=== PATIENT | male | born 1975 | race Caucasian/White ===

== ENCOUNTER 2020-01-21 14:48 | Emergency (ER) | payer OTHER, SELFPAY ==
[2020-01-21 14:50] VITALS: BP 143/87; PULSE 82; RESP 18; TEMP 36.6; O2SAT 97; BMI 33.3
--- NOTE | 2020-01-21 15:01 | CT_ITS ---
STUDY: CT ABDOMEN AND PELVIS WITHOUT CONTRAST REASON FOR EXAM: Male, 44 years old. LEFT SIDED ABD PAIN RADIATING TO RIGHT SIDE/BACK X 1 WK. RADIATION DOSAGE (If Supplied By Facility): CTDIvol = ( 16.49 ) mGy, DLP = ( 856.88 ) mGycm TECHNIQUE: Transaxial images were obtained from the dome of the diaphragm to the symphysis pubis without oral contrast, and without intravenous contrast. Sagittal and coronal images were reconstructed. Individualized dose optimization techniques were used for this CT. COMPARISON: None. FINDINGS: Minimal increased markings in the medial segment of the right middle lobe suggestive of atelectasis and/or scarring. The visualized portions of the heart are within normal limits. Normal liver. Normal gallbladder and extrahepatic biliary system. Normal spleen. Normal pancreas. Normal bilateral adrenal glands. There is a 5.4 mm nonobstructive calculus in the midportion of the right kidney. Normal left kidney. Normal visualized stomach. Normal small intestine. Normal colon. The appendix is visualized and appears normal. There is scattered atherosclerotic calcification of the abdominal aorta, without a demonstrated aneurysm. Normal inferior vena cava. Normal retroperitoneum. Normal urinary bladder. There is a small umbilical hernia containing fat. There are mild degenerative changes of the visualized lumbar spine. CT/Abdomen/Pelvis without Cont IMPRESSION: 5.4 mm nonobstructive calculus in the midpole of the right kidney. Electronically Signed: Santos Roldan, at 15:40 EDT , Service support ,
[2020-01-21] MEDS: Ketorolac 30 MG/ML Syringe IV (15:08)
[2020-01-21] MEDS: Ondansetron 4 MG/2 ML Vial IV (15:08)
[2020-01-21 15:18] LABS: Absolute Lymphocyte Count 1.87 X10^3/uL (0.83-4.51); Absolute Neutrophil Count 5.7 X10^3/uL (2.0-7.7); Basophil# 0.06 X10^3/uL; Basophil% 0.7 % (0-1); Eosinophil# 0.21 X10^3/uL; Eosinophils% 2.4 % (0-5); Hematocrit 48.3 % (40-54); Hemoglobin 16.7 g/dL (13.0-16.5); Lymphocyte # 1.87 X10^3/ul (4.0); Lymphocyte % 21.6 % (19-41); Mean Corp Hgb Conc 34.6 g/dL (32-36); Mean Corpuscular Hgb 32.4 pg (27.0-32.0); Mean Corpuscular Volume 93.8 fL (80-94); Mean Platelet Vol. 9.7 fl (6.2-12.0); Monocyte# 0.76 X10^3/uL; Monocyte% 8.8 % (0-10); NRBC Flagged by Analyzer 0 % (0-5); Neutrophil # 5.73 X10^3/uL (2.7-7.7); Neutrophil % 66.3 % (47-70); Platelet Count 264 K/mm3 (150-450); RBC Distribution Width CV 12.3 % (11.6-14.6); RBC Distribution Width SD 42.1 fl (35.1-43.9); Red Blood Count 5.15 M/mm3 (4.6-6.2); White Blood Count 8.7 K/mm3 (4.4-11.0)
[2020-01-21 15:51] LABS: ALB/GLOB Ratio 1.2 RATIO (0.9-2.4); AST(SGOT) 45 U/L (15-37); Alanine Aminotransfer ALT/SGPT 63 U/L (16-61); Albumin, Serum 4.2 g/dL (3.2-5.0); Alkaline Phosphatase 58 U/L (45-117); Anion Gap 5 (5-15); BUN 11 mg/dL (7-18); BUN/Creat Ratio 12.6 RATIO (10-20); Calcium,Total 9.2 mg/dL (8.5-10.1); Chloride 109 mmol/L (98-107); Creatinine, Serum 0.87 mg/dL (0.70-1.30); EST Glomerular Filtration Rate 101 mL/min (>60); Est Glom Filt Rate - Afr Amer 122 mL/min (>60); Estimated Creatinine Clearance 104.83 ml/min; Globulin 3.6 g/dL (2.2-4.2); Glucose 85 mg/dL (74-106); Potassium 4.3 mmol/L (3.5-5.1); Protein, Total 7.8 g/dL (6.4-8.2); Sodium Level 139 mmol/L (136-145)
[2020-01-21 16:05] LABS: Red Blood Cells-Urine 0 SEEN /hpf (0-5); Squamous Epithelial Cells - UA 0 SEEN /hpf (0-5)
--- NOTE | 2020-01-21 16:09 | ED.VISSUMM ---
- ER Visit Summary Date of Service: 01/21/20 Chief Complaint: Abdominal pain History of Present Illness: The patient is a 44 M who presents with abdominal pain. He has had pain for about 1 week. On the left side of his abdomen he describes a burning sensation that goes through into his back. He then states he has this pain on the right side and in the suprapubic area of his abdomen. Nothing makes his symptoms better or worse. He has nausea without vomiting. His nausea has resolved. He has no diarrhea or constipation. He denies any urinary symptoms. He had an umbilical hernia repair about 8 years ago. He denies any fevers. Physical Examination: Vital signs reviewed. HEENT exam unremarkable. Heart is regular rate and rhythm without murmurs. Lungs are clear to auscultation. Abdomen is soft and nontender, but he states the left side of his abdomen feels different. Extremities reveal no edema. Skin exam normal. Neurologic exam normal. Test Results: Hemoglobin 16.7, chloride 109. AST 45, ALT 63. Urinalysis shows no signs of infection. CAT scan of the abdomen and pelvis reveals a right renal calculus but otherwise unremarkable Emergency Department Course and Treatment: Patient is given Toradol and Zofran. He feels improved. I see no acute causes for this patient's pain. I will give him Bentyl to take for pain at home. He is instructed to return to the emergency department if his pain increases. Treatment Plan: [] Disposition: Discharge Impression: Abdominal pain This note was generated with [employer] dictation software. It may contain incorrect words, spelling, and punctuation that were not noted in review of the chart prior to signing ED Disposition - Plan for ED Patient: Disposition: Home or Assisted Living Instructions: ED Unknown Causes of Abdominal Pain Male Prescriptions: Dicyclomine HCl [Bentyl] 20 mg PO TIDAC #20 cap Prescription Printed Referrals: Yisel Hair NP, [employer] MACHINE OPERATOR-C [Primary Care Provider] - Abbe Livingston MD [STAFF PHYSICIAN] -
[2020-01-21 16:34] LABS: Color, Urine Yellow (Yellow); Glucose, Dipstick Normal (Normal); Ketone-Dipstick 5 mg/dl (Negative); Leukocyte Esterase-Dipstick 25 /ul (Negative); Nitrite-Dipstick Negative (Negative); Occult Blood-Urine Negative /ul (Negative); Protein-Dipstick Negative (Negative); Urine Bilirubin Dipstick Negative (Negative); Urine Clarity Clear (Clear); Urine Urobilinogen 1 mg/dl (Normal)
[2020-01-21 17:04] VITALS: RESP 18
[2020-01-21 17:04] LABS: Bacteria RARE /hpf (None Seen); Mucous, Urine 1+ /hpf (<or=2+); White Blood Cells 0-5 SEEN /hpf (0-5)
== END 2020-01-21 17:04 | disposition home or self-care (01) ==
PROVIDERS: Emergency Provider Emergency Medicine; PCP Registered Nurse
DX: R10.9 Unspecified abdominal pain (principal); R11.0 Nausea; N20.0 Calculus of kidney
CPT/HCPCS: 74176; 80053; 81001; 85025; 96374; 96375; 99283; A4216; J2405

== ENCOUNTER 2020-02-05 00:22 | Emergency (ER) | payer OTHER, SELFPAY ==
[2020-02-05 00:23] VITALS: BP 161/95; PULSE 83; RESP 18; TEMP 36.9; O2SAT 97; BMI 33.0
--- NOTE | 2020-02-05 00:44 | CT_ITS ---
STUDY: CT ABDOMEN AND PELVIS WITHOUT CONTRAST REASON FOR EXAM: Male, 44 years old. RIGHT FLANK PAIN, HX [place] RADIATION DOSAGE (If Supplied By Facility): CTDIvol = ( 16.86 ) mGy, DLP = ( 939.15 ) mGycm TECHNIQUE: Transaxial images were obtained from the dome of the diaphragm to the symphysis pubis without oral contrast, and without intravenous contrast. Sagittal and coronal images were reconstructed. Individualized dose optimization techniques were used for this CT. COMPARISON: January 21, 2020 CT abdomen and pelvis FINDINGS: There is minimal left lower lobe atelectasis. The visualized portions of the heart are within normal limits. Normal liver. Normal gallbladder and extrahepatic biliary system. Normal spleen. Normal pancreas. Normal bilateral adrenal glands. There is moderate right hydronephrosis. There is right renal edema. The stone that was in the kidney on prior study, January 21, 2020, appears to have migrated into the proximal right ureter at the level of the ureteral pelvic junction, measuring 5.7 x 5.2 mm. Normal left kidney. Normal visualized stomach. Normal small intestine. There is moderate stool in the colon. The appendix is visualized and appears normal. There is minimal calcification of the aorta at the bifurcation. Normal inferior vena cava. Normal retroperitoneum. Normal urinary bladder. Normal visualized prostate gland. Normal abdominal wall. There are diffuse degenerative changes of the visualized lumbar spine. CT/Abdomen/Pelvis without Cont IMPRESSION: Mild to moderate right hydronephrosis. Right renal edema secondary to a stone measuring 5.7 x 5.2 mm at the ureteropelvic junction. Mild constipation. No evidence of appendicitis. Electronically Signed: Xiomara Lopez MD at 2:21 EDT Tel , Service support ,
[2020-02-05 00:56] LABS: Absolute Lymphocyte Count 2.44 X10^3/uL (0.83-4.51); Absolute Neutrophil Count 8.7 X10^3/uL (2.0-7.7); Basophil# 0.06 X10^3/uL; Basophil% 0.5 % (0-1); Eosinophil# 0.38 X10^3/uL; Hematocrit 47.9 % (40-54); Hemoglobin 16.5 g/dL (13.0-16.5); Lymphocyte # 2.44 X10^3/ul (4.0); Lymphocyte % 19.6 % (19-41); Mean Corp Hgb Conc 34.4 g/dL (32-36); Mean Corpuscular Hgb 32.8 pg (27.0-32.0); Mean Corpuscular Volume 95.2 fL (80-94); Mean Platelet Vol. 9.8 fl (6.2-12.0); Monocyte# 0.87 X10^3/uL; NRBC Flagged by Analyzer 0 % (0-5); Neutrophil # 8.69 X10^3/uL (2.7-7.7); Neutrophil % 69.6 % (47-70); Platelet Count 274 K/mm3 (150-450); RBC Distribution Width CV 12.3 % (11.6-14.6); Red Blood Count 5.03 M/mm3 (4.6-6.2); White Blood Count 12.5 K/mm3 (4.4-11.0)
[2020-02-05] MEDS: Ketorolac 30 MG/ML Syringe IV (00:59)
[2020-02-05] MEDS: 0.9% Normal Saline 1,000 ML 999 ML IV (00:59)
[2020-02-05] MEDS: Ondansetron 4 MG/2 ML Vial IV (01:00)
[2020-02-05] MEDS: Morphine 4 MG/ML Syringe IV (01:01)
--- NOTE | 2020-02-05 01:01 | ED.DCSUM_ITS ---
History of Present Illness Chief Complaint: Flank Pain Informant: Patient Narrative: 44-year-old male presenting with right-sided flank pain. Has a history of kidney stones in the past. His last CT showed that he had a nonobstructing right renal calculi. He states that now he has pain which is radiating to the inguinal area on the right. He has nausea and difficulty finding position of comfort. He does not have vanesa hematuria. No fever or chills. Past Medical History - Allergies and Home Meds Allergies/Adverse Reactions: Allergies Penicillins [PCN] Allergy (Verified 02/05/20 00:25) NEEDS FOLLOW-UP UNKNOWN Primary Care Physician: Kuldeep Prieto MD [STAFF PHYSICIAN] - Yisel Hair NP, WORKFORCE SPECIALIST-C [Primary Care Provider] - Past Medical History: - - Kidney stones Surgical History: noncontributory Lives: Spouse/ Significant Other Smoking Status: Current every day smoker Alcohol: None Drugs: None Review of Systems General: Reports: Sweats. Denies: Chills, Fever Eyes: Denies: Visual changes - bilaterally, Diplopia ENT: Denies: Rhinorrhea, Sore throat Cardiovascular: Denies: Chest pain, Palpitations Respiratory: Reports: Dyspnea Gastrointestinal: Reports: Abdominal pain, Nausea. Denies: Vomiting, Diarrhea, Melena, Hematochezia Genitourinary: Denies: Dysuria, Hematuria Musculoskeletal: Reports: Back pain - Right flank. Denies: Myalgias Skin: Denies: Rash, Abscess Neurological: Denies: Headache, Weakness Physical Exam Vital Signs/Narrative: Vital Signs Temp Pulse Resp BP Pulse Ox 02/05/20 00:23 98.5 F 83 18 161/95 H 97 General: Well nourished, No Acute Distress Head: Normocephalic, Atraumatic Eyes: Perrl, EOMI ENT: Moist mucous membranes, No rhinorrhea Cardiovascular: Regular rate, Regular rhythm, No murmurs Respiratory: No distress, CTA bilaterally Abdomen: Soft, Nontender, Nondistended Back: CVA tenderness - Right Extremities: Nontender, No edema Skin: Normal color Neurological: Alert, Oriented x3 Psychological: Normal affect, Normal Mood Diagnostic/Tx/Re-eval Clinical Impression(s) from Imaging Studies Abdomen/Pelvis CT 02/05/20 00:44 IMPRESSION: Mild to moderate right hydronephrosis. Right renal edema secondary to a stone measuring 5.7 x 5.2 mm at the ureteropelvic junction. Mild constipation. No evidence of appendicitis. Electronically Signed: Xiomara Lopez MD at 2:21 EDT Tel , Service support , Laboratory Data 02/05/20 02/05/20 02/05/20 00:28 00:28 02:00 WBC 12.5 H RBC 5.03 Hgb 16.5 Hct 47.9 MCV 95.2 H MCH 32.8 H MCHC 34.4 RDW Std Deviation 43.0 RDW Coeff of Magdalena 12.3 Plt Count 274 MPV 9.8 Immature Gran % (Auto) 0.300 Neut % (Auto) 69.6 Lymph % (Auto) 19.6 Millard % (Auto) 7.0 Eos % (Auto) 3.0 Baso % (Auto) 0.5 Absolute Neuts (auto) 8.7 H Absolute Lymphs (auto) 2.44 Nucleated RBC % 0 Sodium 139 Potassium 4.0 Chloride 109 H Carbon Dioxide 25.0 Anion Gap 5 BUN 16 Creatinine 1.07 Estim Creat Clear Calc 88.10 Est GFR (MDRD) Af Amer 96 Est GFR (MDRD) Non-Af 80 BUN/Creatinine Ratio 15.0 Glucose 101 Calcium 9.3 Urine Color Yellow Urine Clarity Clear Urine pH 6.0 Ur Specific Watkins 1.015 Urine Protein 15 H Urine Glucose (UA) Normal Urine Ketones Negative Urine Occult Blood 150 H Urine Nitrite Negative Urine Bilirubin Negative Urine Urobilinogen Normal Ur Leukocyte Esterase Negative Urine RBC 0-5 SEEN Urine WBC 0 SEEN Ur Squamous Epith Cells 0 SEEN Urine Bacteria RARE Urine Mucus 0 SEEN - Medical Decision Making Presents with right-sided flank pain consistent with previous kidney stone. His urine shows hematuria without infection. His lab work is otherwise unremarkable. He was given morphine and Zofran as well as Toradol for pain which did improve his symptoms. CT of the abdomen pelvis without contrast shows a 5.7 mm ureteral stone. Patient is currently comfortable. Was given 5 mg of oxycodone prior to his discharge. He was given urology for follow-up. He is given return precautions. Impression: 1. 5.7 ureteral stone 2. Hematuria ED Disposition - Plan for ED Patient: Disposition: Home or Assisted Living Instructions: ED Renal Stone w Colic Prescriptions: Tamsulosin HCl [Flomax] 0.4 mg PO DAILY #14 cap Prescription Printed Oxycodone HCl/Acetaminophen [Percocet 5/325] 1 tab PO Q6H PRN PRN 3 Days #12 tab PRN Reason: Pain Prescription Printed Ondansetron [Zofran Odt] 4 mg PO Q8H PRN PRN #14 tab PRN Reason: Nausea Prescription Printed Referrals: Yisel Hair NP, WORKFORCE SPECIALIST-C [Primary Care Provider] - Kuldeep Prieto MD [STAFF PHYSICIAN] -
[2020-02-05 02:02] LABS: Anion Gap 5 (5-15); BUN 16 mg/dL (7-18); Calcium,Total 9.3 mg/dL (8.5-10.1); Chloride 109 mmol/L (98-107); Creatinine, Serum 1.07 mg/dL (0.70-1.30); EST Glomerular Filtration Rate 80 mL/min (>60); Est Glom Filt Rate - Afr Amer 96 mL/min (>60); Glucose 101 mg/dL (74-106); Sodium Level 139 mmol/L (136-145)
[2020-02-05 02:02] LABS: Mucous, Urine 0 SEEN /hpf (<or=2+); Squamous Epithelial Cells - UA 0 SEEN /hpf (0-5); White Blood Cells 0 SEEN /hpf (0-5)
[2020-02-05 02:03] LABS: Color, Urine Yellow (Yellow); Glucose, Dipstick Normal (Normal); Ketone-Dipstick Negative (Negative); Leukocyte Esterase-Dipstick Negative /ul (Negative); Nitrite-Dipstick Negative (Negative); Occult Blood-Urine 150 /ul (Negative); Protein-Dipstick 15 mg/dl (Negative); Specific Gravity, Urine 1.015 (1.002-1.030); Urine Bilirubin Dipstick Negative (Negative); Urine Clarity Clear (Clear); Urine Urobilinogen Normal (Normal)
[2020-02-05 02:11] LABS: Red Blood Cells-Urine 0-5 SEEN /hpf (0-5)
[2020-02-05 02:12] LABS: Bacteria RARE /hpf (None Seen)
[2020-02-05 03:14] VITALS: BP 155/78; PULSE 90; RESP 18; O2SAT 97
[2020-02-05] MEDS: oxyCODONE 5 MG Tablet PO (03:37)
[2020-02-05 04:40] VITALS: PULSE 71; RESP 16; O2SAT 98
== END 2020-02-05 04:40 | disposition home or self-care (01) ==
PROVIDERS: Emergency Provider Student in an Organized Health Care Education/Training Program; PCP Registered Nurse
DX: N13.2 Hydronephrosis with renal and ureteral calculous obstruction (principal); R31.9 Hematuria, unspecified; F17.200 Nicotine dependence, unspecified, uncomplicated; Z87.442 Personal history of urinary calculi; Z88.0 Allergy status to penicillin; K59.00 Constipation, unspecified
CPT/HCPCS: 74176; 80048; 81001; 85025; 96361; 96374; 96375; 99283; J7030; A4216; J2405